=== PATIENT | male | born 1945 | race Caucasian/White ===

== ENCOUNTER 2016-12-10 11:31 | Emergency (ER) | payer MEDICARE ==
[2012-02-16 16:05] VITALS: BMI 30.1
[2016-12-10 12:38] LABS: BASOPHILS 0.3 % (0-2); HEMATOCRIT 52.3 % (42.0-54.0); HEMOGLOBIN 17.1 g/dL (13.5-17.5); IMMATURE GRANULOCYTES 0.4 % (0-5); LYMPHOCYTES 32.7 % (15-50); MCH 30.1 pg (26.0-34.0); MCHC 32.7 g/dL (31.0-37.0); MCV 92.1 fL (80.0-100.0); MEAN PLATELET VOLUME 9.7 fL (7.4-10.4); MONOCYTES 12.5 % (2-11); NEUTROPHILS 50.1 % (40-80); PLATELET COUNT 272 10x3/uL (130-400); RBC 5.68 10x6/uL (4.20-6.10); WBC 9.6 10x3/uL (4.8-10.8)
[2016-12-10 13:03] LABS: ALBUMIN 3.9 g/dL (3.4-5.0); BILIRUBIN - TOTAL 0.57 mg/dL (0.2-1.3); CALCIUM 9.4 mg/dL (8.5-10.1); CARBON DIOXIDE 31.7 mmol/L (21.0-32.0); CREATININE - SERUM 1.2 mg/dL (0.6-1.3); POTASSIUM - SERUM 4.7 mmol/L (3.5-5.1); PROTEIN - SERUM 7.6 g/dL (6.4-8.2)
== END 2016-12-10 14:03 | disposition home or self-care (01) ==
LOC: D.ER 11:31
PROVIDERS: Emergency Medicine
DX: J06.9 Acute upper respiratory infection, unspecified (principal); J20.9 Acute bronchitis, unspecified; J44.9 Chronic obstructive pulmonary disease, unspecified; I50.9 Heart failure, unspecified; Z99.81 Dependence on supplemental oxygen

== ENCOUNTER → 2018-11-14 12:56 | Outpatient (CLI) | payer MEDICARE | END | disposition home or self-care (01) | LOC: D.RT 12:56 | DX: J44.9 Chronic obstructive pulmonary disease, unspecified (principal) ==

== ENCOUNTER 2019-07-27 09:17 | Inpatient (IN) | payer MEDICARE ==
[~2019-07-27] VITALS: Ht 177.8 cm; Wt 105.8 kg
[2019-07-27] MEDS ORDERED: IPRAT-ALBUT 0.5-3 ML INH (09:29)
--- NOTE | 2019-07-27 10:04 | NUR ---
PATIENT PRESENTS VIA PRIVATE VEHICLE. HIS REPORTS HE HAS BEEN SICK X 2 WEEKS AND HAS COMPLETED A ROUND OF DOXYCYCLINE AND PREDNISONE WITHOUT RESOLUTION OF SYMPTOMS. HE HAS A HX OF COPD AND HAS HAD INCREASING EPISODES OF BACTERIAL INFECTIONS WITH DIFFICULTY RECOVERING. SHE STATES "HE IS ALWAYS SHORT OF BREATH AND THIS MORNING AFTER HE TOOK HIS SHOWER HE JUST COULDN'T SEEM TO GET IT TO CALM DOWN."
[2019-07-27 10:17] LABS: CALC OSMOLALITY 278 mosm/kg (275-300); CALCIUM 8.9 mg/dL (8.5-10.1); CARBON DIOXIDE 29.1 mmol/L (21.0-32.0); CHLORIDE - SERUM 100 mmol/L (98-107); CREATININE - SERUM 1.2 mg/dL (0.6-1.3); GLUCOSE 116 mg/dL (74-106); POTASSIUM - SERUM 4.9 mmol/L (3.5-5.1); SODIUM 136 mmol/L (136-145); UREA NITROGEN 29 mg/dL (7-18); eGFR NON AFRICAN AMERICAN 63 mL/min (90-120)
[2019-07-27 10:32] LABS: ALKALINE PHOSPHATASE 122 U/L (46-116); ALT (SGPT) 32 U/L (10-68); BILIRUBIN - TOTAL 0.37 mg/dL (0.2-1.3); CKMB 0.8 U/L (0.0-3.6); CREATINE KINASE 28 UL (21-232); PRO BNP 187 pg/mL (0-125); PROTEIN - SERUM 7.2 g/dL (6.4-8.2); TROPONIN-I < 0.017 ng/mL (0.000-0.060)
[2019-07-27 10:51] LABS: BASOPHILS 0.2 % (0-2); EOSINOPHILS 2.9 % (0-7); HEMATOCRIT 47.8 % (42.0-54.0); HEMOGLOBIN 15.1 g/dL (13.5-17.5); IMMATURE GRANULOCYTES 0.9 % (0-5); LYMPHOCYTES 17.5 % (15-50); MCH 28.3 pg (26.0-34.0); MCHC 31.6 g/dL (31.0-37.0); MCV 89.5 fL (80.0-100.0); MEAN PLATELET VOLUME 9.5 fL (7.4-10.4); MONOCYTES 15.4 % (2-11); NEUTROPHILS 63.1 % (40-80); RBC 5.34 10x6/uL (4.20-6.10); RDW 14.9 % (11.5-14.5); WBC 12.3 10x3/uL (4.8-10.8)
[2019-07-27 10:52] LABS: PLATELET COUNT 371 10x3/uL (130-400)
[2019-07-27 11:11] LABS: APTT 33.5 SECONDS (22.8-39.4); INR 0.93 (0.85-1.17)
--- NOTE | 2019-07-27 11:20 | NUR ---
estella from lab called to report pt glucose is 861 but sample was diluted due to machine. Requested redraw for confirmation. Provider, helio jean.
[2019-07-27 11:26] LABS: APPEARANCE CLOUDY (CLEAR); BACTERIA FEW /hpf (NEGATIVE); BILIRUBIN NEGATIVE (NEGATIVE); COLOR RED (YELLOW); EPITHELIAL CELLS OCC /hpf (0-5); GLUCOSE NEGATIVE (NEGATIVE); KETONE NEGATIVE (NEGATIVE); NITRITE NEGATIVE (NEGATIVE); PROTEIN 1+ mg/dL (NEGATIVE); RED CELLS - URINE >50 /hpf (0-5); UROBILINOGEN NORMAL (NORMAL)
[2019-07-27 11:27] VITALS: BP 137/74
[2019-07-27 11:27] LABS: MUCUS <1+ /lpf (NONE SEEN)
--- NOTE | 2019-07-27 12:45 | NUR ---
ROCEPHIN INFUSION COMPLETE AT THIS TIME.
[2019-07-27 13:00] VITALS: BP 133/80
--- NOTE | 2019-07-27 14:51 | NUR ---
TRANSFER FROM ER BY W/C. ADRIANINTED TO ROOM. CALL LIGHT IN REACH. WILL CONT. PLAN OF CARE.
[2019-07-27 14:59] VITALS: BP 148/85; BMI 30.9
[2019-07-27 17:05] VITALS: BP 148/85
[2019-07-27 21:48] VITALS: BP 127/81
[2019-07-28 00:30] VITALS: BP 140/80
--- NOTE | 2019-07-28 04:14 | NUR ---
PT C/O SOB, REQUESTING UPDRAFT. RT CALLED.
[2019-07-28 04:30] VITALS: BP 144/70
--- NOTE | 2019-07-28 07:12 | NUR ---
PT AWAKE AND ORIENTED, AT BEDSIDE REQUESTING MILK. PT HAS NO COMPLAINTS/CONCERNS, STATES HE'S FEELING BETTER TODAY AND IS "STARVING TO ". ALL QUESTIONS ANSWERED TO THE BEST OF MY ABILITY, CL IN REACH, SRX2.
[2019-07-28 09:05] VITALS: BP 134/73
[2019-07-28 09:19] LABS: HEMATOCRIT 42.3 % (42.0-54.0); HEMOGLOBIN 13.3 g/dL (13.5-17.5); MCH 28.1 pg (26.0-34.0); MCHC 31.4 g/dL (31.0-37.0); MCV 89.4 fL (80.0-100.0); MEAN PLATELET VOLUME 8.9 fL (7.4-10.4); PLATELET COUNT 351 10x3/uL (130-400); RBC 4.73 10x6/uL (4.20-6.10); RDW 14.8 % (11.5-14.5)
[2019-07-28 09:23] LABS: WBC 18.9 10x3/uL (4.8-10.8)
[2019-07-28 09:27] LABS: ANION GAP 8.4 mmol/L (8-16); CALCIUM 8.9 mg/dL (8.5-10.1); CARBON DIOXIDE 33.7 mmol/L (21.0-32.0); CREATININE - SERUM 1.2 mg/dL (0.6-1.3); POTASSIUM - SERUM 5.1 mmol/L (3.5-5.1)
[2019-07-28 09:40] LABS: LYMPHOCYTES 13 % (15-50); MONOCYTES 10 % (2-11); NEUTROPHILS 76 % (40-80); PLATELET ESTIMATE NORMAL
--- NOTE | 2019-07-28 09:48 | NUR ---
PT AWAKE AND ORIENTED, VERY FRIENDLY. DAUGHTER AT BEDSIDE IS THE SAME. REQUESTED BREATH TX, ACCOMIDATED. THEY'RE REQUESTING THE TX BE SCHEDULED INSTEAD OF PRN, WILL ASK. NO COMPLAITNS/CONCERNS. PT BACK IN BED AFTER SITTING UP ALL MORNING. CL IN REACH, SRX2.
[2019-07-28 14:02] VITALS: Ht 177.8 cm; Wt 105.8 kg
--- NOTE | 2019-07-28 15:00 | NUR ---
PT HAS BEEN AWAKE AND OIRENTED, NO COMPLAINTS OR CONCERNS. PT HAS MINMALLY DIFFICULTY MOVING AROUND AND REQUIRES STANDBY ASSIST. EVAN AT BEDSIDE. CL IN REACH, SRX2.
[2019-07-28 16:00] VITALS: BP 134/74
--- NOTE | 2019-07-28 16:25 | NUR ---
I have reviewed this patient and I concur with the Shift Assessment completed by the Licensed Practical Nurse today this shift.
[2019-07-28 18:28] VITALS: BP 136/62
--- NOTE | 2019-07-28 19:20 | NUR ---
RECEIVED REPORT, WILL ASSUME CARE OF PT, VISITING WITH FAMILY, DENIES ANY NEEDS AT THIS TIME, BED IS LOW, SRX2, CALL LIGHT IN REACH, WILL CONTINUE PLAN OF CARE
[2019-07-28 20:00] VITALS: BP 119/71
[2019-07-29 00:05] VITALS: BP 92/42
[2019-07-29 04:36] VITALS: BP 106/53
--- NOTE | 2019-07-29 06:01 | NUR ---
I have reviewed this patient and I concur with the Shift Assessment completed by the Licensed Practical Nurse today this shift.
--- NOTE | 2019-07-29 06:03 | NUR ---
I have reviewed this patient and I concur with the Shift Assessment completed by the Licensed Practical Nurse today this shift.
[2019-07-29 07:35] VITALS: BP 117/60
[2019-07-29 11:28] VITALS: BP 110/68
--- NOTE | 2019-07-29 13:54 | NUR ---
I have reviewed this patient and I concur with the Shift Assessment completed by the Licensed Practical Nurse today this shift.
[2019-07-29 16:06] VITALS: BP 168/66
[2019-07-29 20:45] VITALS: BP 147/78
[2019-07-30 00:15] VITALS: BP 124/72
[2019-07-30 04:18] VITALS: BP 129/69
[2019-07-30 06:41] LABS: HEMATOCRIT 41.4 % (42.0-54.0); HEMOGLOBIN 12.5 g/dL (13.5-17.5); MCH 27.9 pg (26.0-34.0); MCHC 30.2 g/dL (31.0-37.0); MCV 92.4 fL (80.0-100.0); MEAN PLATELET VOLUME 9.2 fL (7.4-10.4); PLATELET COUNT 389 10x3/uL (130-400); RBC 4.48 10x6/uL (4.20-6.10); RDW 15.3 % (11.5-14.5); WBC 24.3 10x3/uL (4.8-10.8)
[2019-07-30 06:51] LABS: CALC OSMOLALITY 288 mosm/kg (275-300); CALCIUM 8.8 mg/dL (8.5-10.1); CARBON DIOXIDE 35.2 mmol/L (21.0-32.0); CHLORIDE - SERUM 103 mmol/L (98-107); GLUCOSE 171 mg/dL (74-106); POTASSIUM - SERUM 4.5 mmol/L (3.5-5.1); SODIUM 142 mmol/L (136-145); UREA NITROGEN 18 mg/dL (7-18); eGFR NON AFRICAN AMERICAN 78 mL/min (90-120)
--- NOTE | 2019-07-30 07:52 | NUR ---
REPORT RECEIVED. WILL CONTINUE WITH POC. PT CURRENTLY SITTING ON EDGE OF BED. CALL LIGHT W/I REACH. AT BEDSIDE. RR EVEN AND UNLABORED ON RA. R.WRIST PIV IS SALINE LOCKED. NO S/S OF DISTRESS NOTED. WILL CTM.
[2019-07-30 09:04] LABS: LYMPHOCYTES 10 % (15-50); MONOCYTES 8 % (2-11); NEUTROPHILS 80 % (40-80); PLATELET ESTIMATE NORMAL
[2019-07-30 09:06] LABS: ROULEAUX OCC
[2019-07-30 09:07] LABS: ANISOCYTOSIS OCC
[2019-07-30 09:20] VITALS: BP 130/79
[2019-07-30 12:10] VITALS: BP 135/67
--- NOTE | 2019-07-30 15:46 | NUR ---
I have reviewed this patient and I concur with the Shift Assessment completed by the Licensed Practical Nurse today this shift.
[2019-07-30 17:56] VITALS: BP 130/93
--- NOTE | 2019-07-30 19:18 | NUR ---
AWAKE AND ALERT IS WITH PT AT THIS TIME BED IS LOW AND LOCKED AND CALL LIGHT IS WITH PT DENIES NEEDS AT THIS TIME
[2019-07-30 20:30] VITALS: BP 123/71
[2019-07-31 00:31] VITALS: BP 132/64
--- NOTE | 2019-07-31 01:20 | NUR ---
I have reviewed this patient and I concur with the Shift Assessment completed by the Licensed Practical Nurse today this shift.
[2019-07-31 04:43] VITALS: BP 132/73
[2019-07-31 07:19] LABS: BASOPHILS 0.1 % (0-2); EOSINOPHILS 0 % (0-7); HEMATOCRIT 42.3 % (42.0-54.0); HEMOGLOBIN 12.8 g/dL (13.5-17.5); IMMATURE GRANULOCYTES 1.3 % (0-5); LYMPHOCYTES 3.9 % (15-50); MCH 28.1 pg (26.0-34.0); MCHC 30.3 g/dL (31.0-37.0); MEAN PLATELET VOLUME 9.5 fL (7.4-10.4); MONOCYTES 5.2 % (2-11); NEUTROPHILS 89.5 % (40-80); PLATELET COUNT 419 10x3/uL (130-400); RBC 4.55 10x6/uL (4.20-6.10); RDW 15.5 % (11.5-14.5); WBC 22.3 10x3/uL (4.8-10.8)
--- NOTE | 2019-07-31 07:19 | NUR ---
REPORT RECEIVED. WILL CONTINUE WITH POC. PT CURRENTLY LYING SEMI FOWLERS. CALL LIGHT W/I REACH. PT CURRENTLY UNDERGOING RESP TRX. RR EVEN AND UNLABORED ON 2L 02. L.FOR PIV IS SALINE LOCKED. AT BEDSIDE. NO S/S OF DISTRESS NOTED. PT DENIES ANY NEEDS. WILL CTM.
[2019-07-31 07:26] LABS: CALC OSMOLALITY 289 mosm/kg (275-300); CALCIUM 8.9 mg/dL (8.5-10.1); CHLORIDE - SERUM 103 mmol/L (98-107); GLUCOSE 166 mg/dL (74-106); POTASSIUM - SERUM 5.1 mmol/L (3.5-5.1); SODIUM 142 mmol/L (136-145); UREA NITROGEN 20 mg/dL (7-18); eGFR NON AFRICAN AMERICAN 78 mL/min (90-120)
[2019-07-31 08:17] VITALS: BP 145/79
--- NOTE | 2019-07-31 11:55 | NUR ---
Nutrition Follow-up: Eating well. Diet: Cardiac PO intake: 90-100% Wt: 210# (07/29) Last BM: 07/31 Labs noted: Glu 166 Meds noted: Solumedrol, Zofran -Continue current diet as tolerated. -RD following.
[2019-07-31 12:00] VITALS: BP 141/78
[2019-07-31 14:48] VITALS: BP 155/95
--- NOTE | 2019-07-31 15:55 | NUR ---
I have reviewed this patient and I concur with the Shift Assessment completed by the Licensed Practical Nurse today this shift.
--- NOTE | 2019-07-31 19:05 | NUR ---
AT REST IN BED WITH PRESENT BED LOW AND LOCKED AND CALL LIGHT WITH DENIES NEEDS AT THIS TIME
[2019-07-31 20:00] VITALS: BP 147/0
[2019-08-01] VITALS: BP 133/76
--- NOTE | 2019-08-01 02:30 | NUR ---
I have reviewed this patient and I concur with the Shift Assessment completed by the Licensed Practical Nurse today this shift.
[2019-08-01 04:00] VITALS: BP 136/94
[2019-08-01 05:59] LABS: ANION GAP 7.6 mmol/L (8-16); CALCIUM 9.1 mg/dL (8.5-10.1); CARBON DIOXIDE 35.9 mmol/L (21.0-32.0); CREATININE - SERUM 1.1 mg/dL (0.6-1.3); POTASSIUM - SERUM 4.5 mmol/L (3.5-5.1)
[2019-08-01 06:33] LABS: HEMATOCRIT 43.7 % (42.0-54.0); HEMOGLOBIN 13.4 g/dL (13.5-17.5); MCH 28.3 pg (26.0-34.0); MCHC 30.7 g/dL (31.0-37.0); MCV 92.4 fL (80.0-100.0); MEAN PLATELET VOLUME 9.6 fL (7.4-10.4); PLATELET COUNT 429 10x3/uL (130-400); RBC 4.73 10x6/uL (4.20-6.10); RDW 15.5 % (11.5-14.5); WBC 22.4 10x3/uL (4.8-10.8)
--- NOTE | 2019-08-01 08:35 | NUR ---
ALERT AND ORIENTED. TELEMERTY SHOWS ST. LEFT ARM SL. AT BEDSIDE. O2 AT 2 L/M PER NC. UP AB GABRIELLA, SOME EDEMA TO FEET. C/O NAUSEA. ZOFRAM GIVEN. WILL MONITOR
[2019-08-01 08:40] VITALS: BP 130/83
[2019-08-01 08:47] LABS: LYMPHOCYTES 9 % (15-50); MONOCYTES 12 % (2-11); NEUTROPHILS 79 % (40-80); PLATELET ESTIMATE INCREASED
[2019-08-01 08:48] LABS: ROULEAUX 1+; SMUDGE CELLS OCC
[2019-08-01 12:23] VITALS: BP 129/69
[2019-08-01 16:11] VITALS: BP 126/76
[2019-08-01 20:00] VITALS: BP 140/73
--- NOTE | 2019-08-01 23:50 | NUR ---
RESTING WITH EYES CLOSED, RESPERATIONS EVEN, NO S/S DISTRESS NOTED.
[2019-08-02] VITALS: BP 136/71
--- NOTE | 2019-08-02 01:24 | NUR ---
I have reviewed this patient and I concur with the Shift Assessment completed by the Licensed Practical Nurse today this shift.
[2019-08-02 04:30] VITALS: BP 123/66
[2019-08-02 06:06] LABS: CALC OSMOLALITY 282 mosm/kg (275-300); CALCIUM 8.7 mg/dL (8.5-10.1); CARBON DIOXIDE 35.2 mmol/L (21.0-32.0); CHLORIDE - SERUM 101 mmol/L (98-107); CREATININE - SERUM 0.9 mg/dL (0.6-1.3); POTASSIUM - SERUM 4.9 mmol/L (3.5-5.1); SODIUM 140 mmol/L (136-145); UREA NITROGEN 24 mg/dL (7-18); eGFR NON AFRICAN AMERICAN 88 mL/min (90-120)
[2019-08-02 06:09] LABS: GLUCOSE 101 mg/dL (74-106)
[2019-08-02 06:24] LABS: BASOPHILS 0.2 % (0-2); EOSINOPHILS 0 % (0-7); HEMATOCRIT 43.3 % (42.0-54.0); HEMOGLOBIN 13.2 g/dL (13.5-17.5); IMMATURE GRANULOCYTES 3.8 % (0-5); LYMPHOCYTES 7.1 % (15-50); MCH 27.8 pg (26.0-34.0); MCHC 30.5 g/dL (31.0-37.0); MCV 91.2 fL (80.0-100.0); MEAN PLATELET VOLUME 9.3 fL (7.4-10.4); MONOCYTES 8.2 % (2-11); NEUTROPHILS 80.7 % (40-80); PLATELET COUNT 406 10x3/uL (130-400); RBC 4.75 10x6/uL (4.20-6.10); RDW 15.6 % (11.5-14.5); WBC 22.3 10x3/uL (4.8-10.8)
--- NOTE | 2019-08-02 07:10 | NUR ---
REPORT RECEIVED FROM MANAGEMENT SPECIALIST AND PATIENT CARE ASUMED. PATIENT SITTING UP IN BED AWAKE, ALERT AND ORIENTED X 4. PATIENT IS STABLE AND VSS. PATIENT DENIES ANY NEEDS OR PAIN. AT BS. WILL CONTINUE WITH PLAN OF CARE. SR UP X 2 BED IN LOW POSITION AND CALL LIGHT IN REACH.
[2019-08-02 08:31] VITALS: BP 151/87
--- NOTE | 2019-08-02 11:22 | NUR ---
PATIENT SITTING UP IN BED VISITNG WITH FAMILY. PATIENT IS STABLE AND VSS. PATIENT DENIES ANY NEEDS OR PAIN. WILL CONTINUE TO MONITOR. CALL LIGHT IN REACH.
[2019-08-02 12:11] VITALS: BP 138/83
--- NOTE | 2019-08-02 13:30 | NUR ---
PATIENT LAYING IN BED ON BACK WATCHING TV AND VISITING WITH . PATIENT IS STABLE AND VSS . PATIENT DENIES ANY NEEDS OR PAIN. WILL CONTINUE TO MONITOR. SR UP X 2 BED IN LOW POSITION AND CALL LIGHT IN REACH.
--- NOTE | 2019-08-02 14:29 | NUR ---
DR ANDREW ON UNIT. HE REQUESTS THAT HE BE NOTIFIED WHEN PATIENT IS MEDICALLY CLEARED BY POLLY FOR SURGERY.
--- NOTE | 2019-08-02 15:31 | NUR ---
DR ELVIA WILKINSON.
[2019-08-02 15:51] VITALS: BP 117/78
--- NOTE | 2019-08-02 16:08 | NUR ---
DR MATIAS GAVE VERBAL INSTRUCTIONS TO LET DR ANDREW KNOW THAT PATIENT WILL BE CLEARED IN TWO WEEKS FOR BLADDER RESECTION. CALLED DR ANDREW AND GAVE INFORMATION. HE INSTRUCTED TO CALL HIS OFFICE AND SPEAK WITH THA (HIS NURSE AND RESIDENT CARE AIDE) AND GIVE HER INFORMATION. SPOKE WITH THA AND SHARED INFORMATION. SHE SCHEDULED APPT FOR PATIENT TO BE SEEN IN OFFICE ON AT 8:45.
[2019-08-02] MEDS ORDERED: LEVOFLOXACIN500 MG PO (16:37)
[2019-08-02] MEDS ORDERED: PREDNISONE10 MG PO (16:38)
--- NOTE | 2019-08-02 16:58 | MORECARE ---
CASE MANAGEMENT DISCHARGE SUMMARY PATIENT: MEHRAN STAPLETON UNIT: [id number] ADM DATE: 07/27/19 AGE: 73 : 43 SEX: M ROOM/BED: D.6067 AUTHOR: TRISTA,DOC PHYSICIAN: REFERRING PHYSICIAN: CORBIN DUNCAN MD DATE OF SERVICE: 08/02/19 Discharge Plan Patient Name: MEHRAN STAPLETON Facility: [facility]:[place] : 1945 Planned Disposition: Home Anticipated Discharge Date: 08/02/19 Discharge Date: Expected LOS: 6 Initial Reviewer: [email or web address] Initial Review Date: 08/02/2019 Generated: 08/02/19 5:58 pm Comments DCP- Discharge Planning Updated by [email or web address]: Jose Ellsworth on 08/02/19 3:[address] Patient Name: MEHRAN STAPLETON Admission Status: ER Accout number: [id number] Admission Date: 07-27-2019 : 1945 Admission Diagnosis: Attending: CORBIN DUNCAN Current LOS: 6 Anticipated DC Date: 08-02-2019 Planned Disposition: Home Primary Insurance: MEDICARE A & B Discharge Planning Comments: CM MET WITH PT IN ROOM TO DISCUSS DISCHARGE PLANNING AND NEEDS. PT REPORTS LIVING AT HOME INDEPENDENTLY WITH . PT HAS NEBUIZER AND HOME / PORTABLE OXYGEN FROM [facility] WITH NO OUTSIDE SERVICES ASSISTING IN THE HOME. CM DISCUSSED AVAILABILITY OF HOME HEALTH, REHAB SERVICES AND MEDICAL EQUIPMENT. PT DENIES DISCHARGE NEEDS, REPORTS HIS WILL PICK HIM UP FOR DISCHARGE HOME. IMPORTANT MESSAGE FROM MEDICARE PROVIDED AND EXPLAINED. MEDICAL IMAGING TECH NURSE NOTIFIED. Commercial Appraiser: Jose Ellsworth DCPIA - Discharge Planning Initial Assessment Updated by [email or web address]: Jose Ellsworth on 08/02/19 4:55 pm * Is the patient Alert and Oriented? Yes * How many steps to enter\exit or inside your home? * PCP DR. BLANKENSHIP * Pharmacy [facility], [facility] * Preadmission Environment Home with Family * ADLs Independent * Equipment Nebulizer Oxygen * Other Equipment HOME AND PORTABLE OXYGEN [facility] - PROVIDER * List name and contact numbers for known caregivers / representatives who currently or will assist patient after discharge: POLINA STAPLETON, SPOUSE, * Verbal permission to speak to the caregivers and representatives has been obtained from the patient. Yes * Community resources currently utilized None * Please name any agencies selected above. NONE * Additional services required to return to the preadmission environment? No * Can the patient safely return to the preadmission environment? Yes * Has this patient been hospitalized within the prior 30 days at any hospital? No Coverage Notice Reviewer: [email or web address] Germaine Ellsworth Notice Issued Date-Time: 08/02/2019 16:45 Notice Type: IM Discharge Notice Notice Delivered To: Patient Relationship to Patient: Mobility Architect Manager Name: Delivery Method: HAND - Hand Delivered Mylene Days: Prior Verbal Notification: Recipient Understood Notice: Yes Recipient Signature: Yes Med Rec Note Co-signed by Attending: Coverage Notice Comment: Patient Name: MEHRAN STAPLETON Page [id number] at 1658 All edits/amendments must be made on the electronic document DICTATION DATE: 08/02/191657 UNIX CONSULTANT: MIMI 08/02/191657 RPT#: [id number] DC DATE: STATUS: ADM IN [facility] [address] [place] [address] END OF REPORT
--- NOTE | 2019-08-02 17:30 | NUR ---
PATIENT IS STABLE AND VSS. PATIENT DENIES ANY NEEDS OR PAIN. ORDERS RECIEVED FOR DC. WRITTEN AND VERBAL INSTRUCTIONS GIVEN. PATIENT AND VERBALIZED UNDERSTANDING AND PATIENT SIGNED PAPERWORK. IV DCD WITHOUT DIFFICULTY WITH ENTIRE CATHETER INTACT. BANDAGE APPLIED. PATIENT TO FRONT DOOR VIA WC ACCOMAPNIED BY HOSPITAL STAFF AND . PATIENT DCD TO HOME FOR SELF CARE AND TO PRIVATE VEHICLE DRIVEN BY .
== END 2019-08-02 17:30 | disposition home or self-care (01) | DRG 193 ==
LOC: D.ER 09:17 → D.M2 12:43
PROVIDERS: Family Medicine; ADMIT Internal Medicine Nephrology; ATTEND Internal Medicine Nephrology
DX: J18.9 Pneumonia, unspecified organism (principal); J96.21 Acute and chronic respiratory failure with hypoxia; J44.0 Chronic obstructive pulmonary disease with (acute) lower respiratory infection; J96.11 Chronic respiratory failure with hypoxia; N17.9 Acute kidney failure, unspecified; D62 Acute posthemorrhagic anemia; J44.1 Chronic obstructive pulmonary disease with (acute) exacerbation; D49.4 Neoplasm of unspecified behavior of bladder; E66.9 Obesity, unspecified; Z99.81 Dependence on supplemental oxygen; Z68.30 Body mass index [BMI] 30.0-30.9, adult; G89.29 Other chronic pain; M54.9 Dorsalgia, unspecified; Z87.891 Personal history of nicotine dependence

== ENCOUNTER 2019-08-06 08:45 | Inpatient (IN) | payer MEDICARE ==
[~2019-08-06] VITALS: Ht 177.8 cm; Wt 101.8 kg
[~2019-08-06 08:45] MED LIST: IPRAT-ALBUT 0.5-3 ML INH; LEVOFLOXACIN500 MG PO; PREDNISONE10 MG PO
[2019-08-06 10:10] LABS: HEMATOCRIT 43.9 % (42.0-54.0); HEMOGLOBIN 13.9 g/dL (13.5-17.5); MCHC 31.7 g/dL (31.0-37.0); MCV 88.5 fL (80.0-100.0); MEAN PLATELET VOLUME 9.2 fL (7.4-10.4); PLATELET COUNT 380 10x3/uL (130-400); RBC 4.96 10x6/uL (4.20-6.10); RDW 15.9 % (11.5-14.5); WBC 24.7 10x3/uL (4.8-10.8)
[2019-08-06 10:14] LABS: APTT 24.8 SECONDS (22.8-39.4); INR 0.89 (0.85-1.17); PROTIME 11.6 SECONDS (11.6-15.0)
[2019-08-06 10:16] LABS: APPEARANCE CLOUDY (CLEAR); BILIRUBIN NEGATIVE (NEGATIVE); COLOR YELLOW (YELLOW); GLUCOSE NEGATIVE (NEGATIVE); KETONE NEGATIVE (NEGATIVE); NITRITE NEGATIVE (NEGATIVE); PROTEIN 1+ mg/dL (NEGATIVE); UROBILINOGEN NORMAL (NORMAL)
[2019-08-06 10:17] LABS: BACTERIA MODERATE /hpf (NEGATIVE); CALC OSMOLALITY 283 mosm/kg (275-300); CALCIUM 8.7 mg/dL (8.5-10.1); CHLORIDE - SERUM 102 mmol/L (98-107); EPITHELIAL CELLS 0-5 /hpf (0-5); GLUCOSE 88 mg/dL (74-106); MUCUS <1+ /lpf (NONE SEEN); POTASSIUM - SERUM 4.4 mmol/L (3.5-5.1); RED CELLS - URINE 25-50 /hpf (0-5); SODIUM 139 mmol/L (136-145); UREA NITROGEN 32 mg/dL (7-18); WHITE CELLS - URINE 25-50 /hpf (NEGATIVE); eGFR NON AFRICAN AMERICAN 78 mL/min (90-120)
[2019-08-06 10:35] LABS: ALBUMIN 2.9 g/dL (3.4-5.0); ALKALINE PHOSPHATASE 78 U/L (46-116); ALT (SGPT) 39 U/L (10-68); BILIRUBIN - TOTAL 0.34 mg/dL (0.2-1.3); CKMB 1.8 U/L (0.0-3.6); CREATINE KINASE 36 UL (21-232); PRO BNP 113 pg/mL (0-125); PROTEIN - SERUM 6.4 g/dL (6.4-8.2); TROPONIN-I < 0.017 ng/mL (0.000-0.060)
--- NOTE | 2019-08-06 11:04 | MORECARE ---
CASE MANAGEMENT DISCHARGE SUMMARY PATIENT: MEHRNA STAPLETON BRENDA UNIT: [id number] ADM DATE: 08/06/19 AGE: 73 : 43 SEX: M ROOM/BED: D.4342 AUTHOR: KAVON WESTON PHYSICIAN: REFERRING PHYSICIAN: LACHELLE GARCIA MD DATE OF SERVICE: 08/06/19 Discharge Plan Patient Name: MEHRAN STAPLETON Facility: [facility]:[place] : 1945 Planned Disposition: Home Anticipated Discharge Date: 08/08/19 Discharge Date: Expected LOS: 2 Initial Reviewer: [email or web address] Initial Review Date: 08/06/2019 Generated: 08/06/19 12:04 pm Patient Name: MEHRAN STAPLETON Page [phone] at 1104 All edits/amendments must be made on the electronic document DICTATION DATE: 08/06/19 110 LAMP REPLACER: DM 08/06/19 1104 RPT#: [id number] DC DATE: STATUS: ADM IN [facility] [address] [place] [address] END OF REPORT
--- NOTE | 2019-08-06 11:11 | MORECARE ---
CASE MANAGEMENT DISCHARGE SUMMARY PATIENT: MEHRAN HUBER UNIT: [id number] ADM DATE: 08/06/19 AGE: 73 : 43 SEX: M ROOM/BED: D.7398 AUTHOR: TRISTA,DOC PHYSICIAN: REFERRING PHYSICIAN: LACHELLE GARCIA MD DATE OF SERVICE: 08/06/19 Discharge Plan Patient Name: MEHRAN HUBER Facility: [facility]:[place] : 1945 Planned Disposition: Home Anticipated Discharge Date: 08/08/19 Discharge Date: Expected LOS: 2 Initial Reviewer: [email or web address] Initial Review Date: 08/06/2019 Generated: 08/06/19 12:11 pm DCP- Discharge Planning Updated by [email or web address]: Amelia Gilbert on 08/06/19 10:[address] DC PLAN: Return home independently with . ANTICIPATED DC NEEDS: Denied known dc needs at time of assessment in the ER. CM met with patient and his to complete initial dc planning assessment. CM educated them on the CM role and verbal consent given by patient to complete assessment. CM verified patient's address, phone number, and emergency contact phone numbers. Patient lives at home with his . He reports he is independent in his care at home. At discharge patient plans to return home and feels this is a safe discharge. CM discussed availability of home health, rehab services, and medical equipment. Patient denied known discharge needs at this time. Transportation provider at discharge will be his . CM will continue to follow and will assist as needed with dc plans/needs. DCPIA - Discharge Planning Initial Assessment Updated by [email or web address]: Amelia Gilbert on 08/06/19 11:04 am * Is the patient Alert and Oriented? Yes * How many steps to enter\exit or inside your home? * PCP Dr. Cartwright * Pharmacy [facility] [address] * Preadmission Environment Home with Family * ADLs Independent * Equipment Nebulizer Oxygen * Other Equipment [facility] is DME provider. Home O2 w/ portability. * List name and contact numbers for known caregivers / representatives who currently or will assist patient after discharge: Pratibha Huber - spouse - [phone] * Verbal permission to speak to the caregivers and representatives has been obtained from the patient. Yes * Community resources currently utilized None * Additional services required to return to the preadmission environment? No * Can the patient safely return to the preadmission environment? Yes * Has this patient been hospitalized within the prior 30 days at any hospital? Yes Last DP export: 08/06/19 10:04 am Patient Name: MEHRAN HUBER Page 89210 at 1111 All edits/amendments must be made on the electronic document DICTATION DATE: 08/06/19 111 KNOT CUTTER: MIMI 08/06/19 1110 RPT#: [id number] DC DATE: STATUS: ADM IN [facility] [address] [place] [address] END OF REPORT
--- NOTE | 2019-08-06 12:08 | NUR ---
STOP TIME ON ROCEPHIN IS 1215
--- NOTE | 2019-08-06 12:30 | NUR ---
ARRIVE TO ROOM VIA WHEELCHAIR FROM ER. ALERT AND ORIENTED X4. AMBULATES TO BED FROM WHEELCHAIR. GAIT STEADY. ACCOMPANIED BY SPOUSE. IV INFUSING ORDERED. REPORTS PAIN WHEN URINATING. HOLA DONALD APN FOR PAIN MEDICATION. REFUSE SCDs. UP AD GABRIELLA. CONTINUE ADMISSION PROCESS AND SAFETY PRECAUTIONS.
[2019-08-06 12:38] LABS: LYMPHOCYTES 19 % (15-50); MONOCYTES 15 % (2-11); NEUTROPHILS 63 % (40-80); PLATELET ESTIMATE NORMAL; ROULEAUX OCC
[2019-08-06 14:26] VITALS: BP 130/85; BMI 31.8
[2019-08-06 17:42] VITALS: BP 116/61
[2019-08-06 20:41] VITALS: BP 115/82
[2019-08-07 00:35] VITALS: BP 120/84
[2019-08-07 04:00] VITALS: BP 147/94
[2019-08-07 05:41] LABS: BASOPHILS 0.3 % (0-2); EOSINOPHILS 0.9 % (0-7); HEMATOCRIT 42.7 % (42.0-54.0); HEMOGLOBIN 13.2 g/dL (13.5-17.5); LYMPHOCYTES 21.2 % (15-50); MCH 27.9 pg (26.0-34.0); MCHC 30.9 g/dL (31.0-37.0); MCV 90.3 fL (80.0-100.0); MEAN PLATELET VOLUME 9.4 fL (7.4-10.4); MONOCYTES 13.8 % (2-11); NEUTROPHILS 56.8 % (40-80); PLATELET COUNT 354 10x3/uL (130-400); RBC 4.73 10x6/uL (4.20-6.10); RDW 16.2 % (11.5-14.5)
[2019-08-07 06:06] LABS: ALBUMIN 2.8 g/dL (3.4-5.0); ALKALINE PHOSPHATASE 81 U/L (46-116); ALT (SGPT) 37 U/L (10-68); BILIRUBIN - TOTAL 0.42 mg/dL (0.2-1.3); CALC OSMOLALITY 285 mosm/kg (275-300); CALCIUM 8.2 mg/dL (8.5-10.1); CARBON DIOXIDE 32.1 mmol/L (21.0-32.0); CHLORIDE - SERUM 103 mmol/L (98-107); GLUCOSE 78 mg/dL (74-106); MAGNESIUM - SERUM 2.2 mg/dL (1.8-2.4); POTASSIUM - SERUM 4.3 mmol/L (3.5-5.1); PROTEIN - SERUM 6.1 g/dL (6.4-8.2); SODIUM 140 mmol/L (136-145); UREA NITROGEN 34 mg/dL (7-18); eGFR NON AFRICAN AMERICAN 78 mL/min (90-120)
[2019-08-07 06:36] LABS: WBC 17.4 10x3/uL (4.8-10.8)
--- NOTE | 2019-08-07 07:15 | NUR ---
RECEIVED PT IN BED EYES CLOSED RESP UNLABORED SKIN W/D NAD NOTED AT THIS TIME
[2019-08-07 11:01] VITALS: BP 131/80
[2019-08-07 13:23] VITALS: Ht 177.8 cm; Wt 101.8 kg
[2019-08-07 20:00] VITALS: BP 135/70
[2019-08-08] VITALS (7 sets, daily range): BP systolic 107–137; BP diastolic 52–74
[2019-08-08 06:12] LABS: BASOPHILS 0.1 % (0-2); EOSINOPHILS 0.7 % (0-7); HEMATOCRIT 42.6 % (42.0-54.0); HEMOGLOBIN 12.7 g/dL (13.5-17.5); IMMATURE GRANULOCYTES 2.5 % (0-5); LYMPHOCYTES 12.1 % (15-50); MCH 27.9 pg (26.0-34.0); MCHC 29.8 g/dL (31.0-37.0); MCV 93.4 fL (80.0-100.0); MEAN PLATELET VOLUME 9.2 fL (7.4-10.4); MONOCYTES 11.8 % (2-11); NEUTROPHILS 72.8 % (40-80); PLATELET COUNT 355 10x3/uL (130-400); RBC 4.56 10x6/uL (4.20-6.10); RDW 16.3 % (11.5-14.5); WBC 17.6 10x3/uL (4.8-10.8)
[2019-08-08 06:33] LABS: CALC OSMOLALITY 276 mosm/kg (275-300); CARBON DIOXIDE 36.2 mmol/L (21.0-32.0); CHLORIDE - SERUM 97 mmol/L (98-107); CREATININE - SERUM 0.9 mg/dL (0.6-1.3); GLUCOSE 117 mg/dL (74-106); MAGNESIUM - SERUM 2.1 mg/dL (1.8-2.4); POTASSIUM - SERUM 4.3 mmol/L (3.5-5.1); SODIUM 136 mmol/L (136-145); UREA NITROGEN 23 mg/dL (7-18); eGFR NON AFRICAN AMERICAN 88 mL/min (90-120)
--- NOTE | 2019-08-08 10:21 | NUR ---
IV RESTARTED TO LEFT FA WITH 22 GAUGE CATH X 1 STICK AND FLUSHED WITH NS. LINE IS PATENT.
--- NOTE | 2019-08-08 19:24 | NUR ---
RECEIVED BEDSIDE REPORT. PATIENT IS ALERT AND ORIENTED, RESTING COMFORTABLY IN BED. RESPIRATIONS ARE EVEN AND UNLABORED. NO S/S OF DISTRESS. NO C/O PAIN. CALL LIGHT WITHIN REACH. WILL CPOC.
--- NOTE | 2019-08-09 02:33 | NUR ---
PATIENT RESTING COMFORTABLY. RESPIRATIONS ARE EVEN AND UNLABORED. NO S/S OF DISTRESS. CALL LIGHT WITHIN REACH.
[2019-08-09 06:32] LABS: BASOPHILS 0 % (0-2); EOSINOPHILS 0 % (0-7); HEMATOCRIT 38.6 % (42.0-54.0); HEMOGLOBIN 11.9 g/dL (13.5-17.5); IMMATURE GRANULOCYTES 1.5 % (0-5); LYMPHOCYTES 3.1 % (15-50); MCH 28.1 pg (26.0-34.0); MCHC 30.8 g/dL (31.0-37.0); MEAN PLATELET VOLUME 9.6 fL (7.4-10.4); MONOCYTES 5.4 % (2-11); PLATELET COUNT 342 10x3/uL (130-400); RBC 4.24 10x6/uL (4.20-6.10); RDW 15.9 % (11.5-14.5); WBC 20.4 10x3/uL (4.8-10.8)
[2019-08-09 06:44] LABS: CALCIUM 8.4 mg/dL (8.5-10.1); CARBON DIOXIDE 35.1 mmol/L (21.0-32.0); CHLORIDE - SERUM 101 mmol/L (98-107); MAGNESIUM - SERUM 2.3 mg/dL (1.8-2.4); POTASSIUM - SERUM 4.4 mmol/L (3.5-5.1); SODIUM 139 mmol/L (136-145); TROPONIN-I < 0.017 ng/mL (0.000-0.060); eGFR NON AFRICAN AMERICAN 78 mL/min (90-120)
[2019-08-09 06:46] LABS: CALC OSMOLALITY 283 mosm/kg (275-300); GLUCOSE 195 mg/dL (74-106); UREA NITROGEN 14 mg/dL (7-18)
[2019-08-09 08:27] VITALS: BP 129/67
--- NOTE | 2019-08-09 09:15 | NUR ---
TASKED TO DR. MATIAS ABOUT PT WANTING TO GO SINCE HIS SURGERY WASNT GOING TO BE UNTILL NEXT WEEK. NEW ORDERS GIVEN.
--- NOTE | 2019-08-09 09:40 | NUR ---
SPKE TO [facility] A SECOND TIME LETTING HER KNOW THAT THEY WERE READY TO GO NOW AND SOON SHE PUTS THE ORDER IN SHE WAS TAKING HIM OUT.
--- NOTE | 2019-08-09 10:30 | NUR ---
WENT TO GIVE IV SOLUMEDROL AND PROBIOTIC. MEDS WERE REFUSED AND EXPLAINS SHE HAS ALREADY TAKEN OUT IV. STATES SHE WANTS ME TO CALL [facility] AGAIN FOR DC ORDERS.
--- NOTE | 2019-08-09 10:31 | NUR ---
[facility] HAWKINS APN PAGED TO SEE ABOUT HEART MONITOR TO BE D/C.
--- NOTE | 2019-08-09 10:40 | NUR ---
[facility] HAWKINS APN TO CALL BACK WITH DC MONITOR ORDER.
--- NOTE | 2019-08-09 10:52 | NUR ---
REFUSED TO WAIT ON DC INTRUCTIONS AND MED REC. ESCORTED TO CAR BY W/C.
--- NOTE | 2019-08-09 11:31 | MORECARE ---
CASE MANAGEMENT DISCHARGE SUMMARY PATIENT: MEHRAN HUBER UNIT: [id number] ADM DATE: 08/06/19 AGE: 73 : 43 SEX: M ROOM/BED: D.0429 AUTHOR: TRISTA,DOC PHYSICIAN: REFERRING PHYSICIAN: LACHELLE GARCIA MD DATE OF SERVICE: 08/09/19 Discharge Plan Patient Name: MEHRAN HUBER Facility: [facility]:[place] : 1945 Planned Disposition: Home Anticipated Discharge Date: 08/09/19 Discharge Date: 08/09/2019 Expected LOS: 3 Initial Reviewer: [email or web address] Initial Review Date: 08/06/2019 Generated: 08/09/19 12:31 pm DCP- Discharge Planning Updated by [email or web address]: Amelia Gilbert on 08/06/19 10:[address] DC PLAN: Return home independently with . ANTICIPATED DC NEEDS: Denied known dc needs at time of assessment in the ER. CM met with patient and his to complete initial dc planning assessment. CM educated them on the CM role and verbal consent given by patient to complete assessment. CM verified patient's address, phone number, and emergency contact phone numbers. Patient lives at home with his . He reports he is independent in his care at home. At discharge patient plans to return home and feels this is a safe discharge. CM discussed availability of home health, rehab services, and medical equipment. Patient denied known discharge needs at this time. Transportation provider at discharge will be his . CM will continue to follow and will assist as needed with dc plans/needs. DCPIA - Discharge Planning Initial Assessment Updated by [id number]: Amelia Gilbert on 08/06/19 11:04 am * Is the patient Alert and Oriented? Yes * How many steps to enter\exit or inside your home? * PCP Dr. Cartwright * Pharmacy [facility] [address] * Preadmission Environment Home with Family * ADLs Independent * Equipment Nebulizer Oxygen * Other Equipment [facility] is DME provider. Home O2 w/ portability. * List name and contact numbers for known caregivers / representatives who currently or will assist patient after discharge: Pratibha Huber - spouse - [phone] * Verbal permission to speak to the caregivers and representatives has been obtained from the patient. Yes * Community resources currently utilized None * Additional services required to return to the preadmission environment? No * Can the patient safely return to the preadmission environment? Yes * Has this patient been hospitalized within the prior 30 days at any hospital? Yes Last DP export: 08/06/19 10:11 am Patient Name: MEHRAN HUBER Page [phone] at 1131 All edits/amendments must be made on the electronic document DICTATION DATE: 08/09/19 1131 SQL PROGRAMMER ANALYST: MIMI 08/09/19 1131 RPT#: [id number] DC DATE:08/09/19 STATUS: DIS IN [facility] [address] [place] [address] END OF REPORT
== END 2019-08-09 10:53 | disposition home or self-care (01) | DRG 689 ==
LOC: D.ER 08:45 → D.M2 10:38
PROVIDERS: Family Medicine; ADMIT Family Medicine; ATTEND Family Medicine
DX: N39.0 Urinary tract infection, site not specified (principal); J18.9 Pneumonia, unspecified organism; J44.0 Chronic obstructive pulmonary disease with (acute) lower respiratory infection; J44.1 Chronic obstructive pulmonary disease with (acute) exacerbation; N17.9 Acute kidney failure, unspecified; I50.9 Heart failure, unspecified; E66.9 Obesity, unspecified; Z68.30 Body mass index [BMI] 30.0-30.9, adult; K21.9 Gastro-esophageal reflux disease without esophagitis; K22.8 Other specified diseases of esophagus; N32.89 Other specified disorders of bladder; Z87.891 Personal history of nicotine dependence